=== PATIENT | male | born 1950 | race Caucasian/White ===

== ENCOUNTER → 2021-06-30 | Outpatient (CLI) | payer OTHER ==
[~2021-06-30] MED LIST: ACET325T9 PO; CHOL200010 PO; FERR-36 PO; HYDR-2761 PO; OMEP20CA16 PO; SIMV20TA18 PO
[2021-06-30 09:30] LABS: BASO % 1 % (0-3); EOS # 0.1 x10^3/uL (0.0-0.7); EOS % 1 % (0-3); HEMATOCRIT 44.2 % (39.0-53.0); HEMOGLOBIN 14.6 g/dL (13.0-17.5); LYMPH # 1.5 x10^3/uL (1.0-4.8); LYMPH % 30 % (24-48); MEAN CORPUSCULAR HEMOGLOBIN 30 pg (25-35); MEAN CORPUSCULAR HGB CONC 33 g/dL (31-37); MEAN CORPUSCULAR VOLUME 89 fL (79-100); MONO # 0.8 x10^3/uL (0.0-1.1); MONO % 16 % (0-9); NEUT # 2.6 x10^3/uL (1.8-7.7); NEUT % 52 % (31-73); PLATELET COUNT 229 x10^3/uL (140-400); RED BLOOD COUNT 4.95 x10^6/uL (4.30-5.70); RED CELL DISTRIBUTION WIDTH 14.9 % (11.5-14.5); WHITE BLOOD COUNT 4.9 x10^3/uL (4.0-11.0)
[2021-06-30 09:39] LABS: PROTHROMBIN TIME PATIENT 13.4 SEC (11.7-14.0)
[2021-06-30 09:51] LABS: CREATININE 0.7 mg/dL (0.7-1.3); GFR 110.9; POTASSIUM 4.6 mmol/L (3.5-5.1)
--- NOTE | 2021-06-30 12:07 | EKG ---
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
--- NOTE | 2021-06-30 12:36 | RAD ---
EXAM: Chest, 2 views. HISTORY: Hyperlipidemia. COMPARISON: None. FINDINGS: 2 views of the chest are obtained. There is no infiltrate, pleural effusion or pneumothorax . There is a prominent cardiac silhouette. IMPRESSION: No acute pulmonary finding. Electronically signed by: Chuyita Amos MD (06/30/2021 12:33 PM) [id number]
[2021-06-30 23:07] LABS: HEMOGLOBIN A1C 6.5 % (4.8-5.6)
== END ==
LOC: SURGPAT 11:58
PROVIDERS: ATTEND Orthopaedic Surgery
DX: Z01.818 Encounter for other preprocedural examination (principal); M17.0 Bilateral primary osteoarthritis of knee
CPT/HCPCS: 36415; 71046; 80048; 82040; 82306; 83036; 85025; 85610; 85651; 85730; 87641; 93005